=== PATIENT | female | born 1995 | race American Indian/Alaskan Native ===

== ENCOUNTER 2017-04-16 21:17 | Emergency (ER) | payer OTHER ==
[2017-04-16 22:04] VITALS: BMI 27.3
[2017-04-16 22:13] VITALS: TEMP 98.5
[2017-04-16] MEDS ORDERED: Sodium Chloride 0.9% 1,000 ML IV STA (22:24)
--- NOTE | 2017-04-16 22:50 | ED PDOC ---
Arrival/HPI - General Historian: Patient - History of Present Illness Time/Duration: > week (2 weeks, pain became worse one day ago) Symptom Course: Worsening <Tiffanie Garcia - Last Filed: 04/17/17 00:07> <Regina Shaw PA-C - Last Filed: 04/17/17 01:17> - General Chief Complaint: Abdominal Pain Time Seen by Provider: 04/16/17 22:06 - History of Present Illness Narrative History of Present Illness (Text): 04/16/17 21:45 Kanika Santiago is a 22 year old female, whose past medical history includes appendectomy and a feeding tube as an , who presents to the Emergency department complaining of epigastric pain for the past two weeks. Patient reports that one day ago the pain became constant and worse. Along with this she also had nausea, vomiting, and food intolerance. Patient notes taking Tylenol, but there is no significant relief and her last menstrual period was in the beginning of March. Patient denies chest pain, shortness of breath, headache, fever, chills, cough, diarrhea, dysuria, hematuria, frequency, flank pain, or other complaints. PMD: Dr. Lundberg (Tiffanie Garcia) Modifying Factors (Text): food intolerance to everything she eats (Tiffanie Garcia) Associated Symptoms (Text): nausea, vomiting, and food intolerance. No pain relief with Tylenol. (Tiffanie Garcia) Past Medical History - Provider Review Nursing Documentation Reviewed: Yes - Infectious Disease Hx of Infectious Diseases: None - Psychiatric Hx Substance Use: No - Anesthesia Hx Anesthesia: No <Tiffanie Garcia - Last Filed: 04/17/17 00:07> Family/Social History - Physician Review Nursing Documentation Reviewed: Yes Family/Social History: Unknown Family HX Smoking Status: Never Smoked Hx Alcohol Use: No Hx Substance Use: No <Tiffanie Garcia - Last Filed: 04/17/17 00:07> Allergies/Home Meds <Tiffanie Garcia - Last Filed: 04/17/17 00:07> <Regina Shaw PA-C - Last Filed: 04/17/17 01:17> Allergies/Adverse Reactions: Allergies No Known Allergies Allergy (Verified 04/16/17 22:04) Review of Systems - Review of Systems Constitutional: absent: Fevers Respiratory: absent: SOB Cardiovascular: absent: Chest Pain Gastrointestinal: Abdominal Pain (epigastric region), Nausea, Vomiting, Food Intolerance Genitourinary Female: absent: Dysuria, Frequency, Hematuria Musculoskeletal: absent: Back Pain Neurological: absent: Headache <Tiffanie Garcia - Last Filed: 04/17/17 00:07> Physical Exam Vital Signs Reviewed: Yes Temperature: Afebrile Blood Pressure: Normal Pulse: Regular Respiratory Rate: Normal Appearance: Positive for: Well-Appearing, Non-Toxic, Comfortable Pain Distress: None Mental Status: Positive for: Alert and Oriented X 3 - Systems Exam Head: Present: Atraumatic, Normocephalic Pupils: Present: PERRL Extroacular Muscles: Present: EOMI Conjunctiva: Present: Normal Mouth: Present: Moist Mucous Membranes Neck: Present: Normal Range of Motion Respiratory/Chest: Present: Clear to Auscultation, Good Air Exchange. No: Respiratory Distress, Accessory Muscle Use Cardiovascular: Present: Regular Rate and Rhythm, Normal S1, S2. No: Murmurs Abdomen: Present: Tenderness (mild epigastric tenderness), Normal Bowel Sounds, Scars (on LUQ and umbilical ). No: Distention, Peritoneal Signs Back: Present: Normal Inspection Upper Extremity: Present: Normal Inspection. No: Cyanosis, Edema Lower Extremity: Present: Normal Inspection. No: Edema Neurological: Present: GCS=15, CN II-XII Intact, Speech Normal Skin: Present: Warm, Dry, Normal Color. No: Rashes Psychiatric: Present: Alert, Oriented x 3, Normal Insight, Normal Concentration <Tiffanie Garcia - Last Filed: 04/17/17 00:07> Medical Decision Making - Lab Interpretations I have reviewed the lab results: Yes <Tiffanie Garcia - Last Filed: 04/17/17 00:07> - Scribe Statement The provider has reviewed the documentation as recorded by the Scribe <Tiffanie Garcia - Last Filed: 04/17/17 00:07> - PA / RENDERER / Resident Statement MD/DO has reviewed & agrees with the documentation as recorded. <Regina Shaw PA-C - Last Filed: 04/17/17 01:17> - Scribe Statement 04/16/2017 Sophie Ivy Provider Scribe Attestation: All medical record entries made by the Scribe were at my direction and personally dictated by me. I have reviewed the chart and agree that the record accurately reflects my personal performance of the history, physical exam, medical decision making, and the department course for this patient. I have also personally directed, reviewed, and agree with the discharge instructions and disposition. (Tiffanie Garcia) Disposition/Present on Arrival - Present on Arrival History of DVT/PE: No History of Uncontrolled Diabetes: No Urinary Catheter: No History of Decub. Ulcer: No History Surgical Site Infection Following: None <Tiffanie Garcia - Last Filed: 04/17/17 00:07> - Present on Arrival Any Indicators Present on Arrival: No History of DVT/PE: No History of Uncontrolled Diabetes: No Urinary Catheter: No History of Decub. Ulcer: No - Disposition Have Diagnosis and Disposition been Completed?: Yes Disposition Time: 00:45 Patient Plan: Discharge <Regina Shaw PA-C - Last Filed: 04/17/17 01:17> - Disposition Diagnosis: Abdominal pain, Disposition: HOME/ ROUTINE Condition: IMPROVED Discharge Instructions (ExitCare): Abdominal Pain (ED), First Trimester (ED) Print Language: CONGOLESE Additional Instructions: Thank you for letting us take care of you today. You were treated for abdominal pain, . The emergency medical care you received today was directed at your acute symptoms. If you were prescribed any medication, please fill it and take as directed. It may take several days for your symptoms to resolve. Return to the Emergency Department if your symptoms worsen, do not improve, or if you have any other problems. Please contact your OB doctor in 2 days for re-evaluation and follow up. Bring any paperwork you were given at discharge with you along with any medications you are taking to your follow up visit. Our treatment cannot replace ongoing medical care by a primary care provider (PCP) outside of the emergency department. Thank you for allowing the [facility] team to be part of your care today. Prescriptions: Multivit/Folic Acid/I [] 1 tab PO DAILY #30 tab Referrals: Dean Lundberg MD [Primary Care Provider] - Follow up with primary Forms: [employer] (Hungarian), WORK NOTE
[2017-04-16 22:55] LABS: BASO # 0.02 K/mm3 (0.0-2.0); BASO % 0.3 % (0.0-3.0); EOS # 0.1 (0.0-0.7); EOS % 0.9 % (1.5-5.0); GRAN # 4.11 (1.4-6.5); GRAN % 62.7 % (50.0-68.0); HEMATOCRIT 33.9 % (36.0-48.0); MEAN CELL VOLUME 75.7 fl (80.0-105.0); MONO # 0.4 (0.1-0.6); MONO % 6.1 % (1.0-6.0); RED CELL DISTRIBUTION WIDTH 14.5 % (11.5-14.5); WHITE BLOOD COUNT 6.6 10^3/ul (4.5-11.0)
[2017-04-16 23:06] LABS: ALB/GLOB RATIO 1.3 (1.1-1.8); ALKALINE PHOSPHATASE 41 U/L (38-133); ALT/SGPT 26 U/L (7-56); AST/SGOT 32 U/L (15-39); BILIRUBIN,TOTAL 0.4 mg/dL (0.2-1.3); BLOOD UREA NITROGEN 9 mg/dL (7-21); CALCIUM 9.2 mg/dL (8.4-10.5); CARBON DIOXIDE 23 mmol/L (21-33); CHLORIDE 103 mmol/L (98-107); GFR AFRICAN-AMERICAN > 60; GLUCOSE,RANDOM 88 mg/dL (70-110); LIPASE 82 U/L (23-300); POTASSIUM 4.1 mmol/L (3.6-5.0); SODIUM 137 mmol/L (132-148); TOTAL PROTEIN 7.6 g/dL (5.8-8.3)
[2017-04-16 23:24] LABS: PH,URINE 6.5 (4.7-8.0); URINE BILIRUBIN NEGATIVE (NEGATIVE); URINE BLOOD NEGATIVE (NEGATIVE); URINE GLUCOSE (UA) NEGATIVE (NEGATIVE); URINE KETONE NEGATIVE (NEGATIVE); URINE LEUKOCYTE ESTERASE NEGATIVE Leu/uL (NEGATIVE); URINE PROTEIN NEGATIVE mg/dL (<30 mg/dL)
[2017-04-16 23:26] LABS: URINE APPEARANCE CLEAR (CLEAR); URINE COLOR YELLOW (YELLOW)
--- NOTE | 2017-04-17 00:07 | US ---
EXAM: US Abdomen Complete CLINICAL HISTORY: 22 years old, female; Pain; Abdominal pain; Generalized; ; Additional info: Epigastric pain TECHNIQUE: Real-time ultrasound of the abdomen (complete) with image documentation. COMPARISON: No relevant prior studies available. FINDINGS: Liver: No acute findings. No intrahepatic bile duct dilation. Gallbladder: No acute findings. No gallstones. Common bile duct: No stones. No dilation, measuring 3.4 mm. Pancreas: Visualization of the pancreas is limited by overlying bowel gas. Right kidney: No acute findings. No hydronephrosis. An anechoic rounded focus is identified within the right kidney measuring 18 mm in greatest dimension. The right kidney is significantly smaller than the left. The right kidney measures 8.1 x 4.0 x 5.3 cm. Left Kidney: Unremarkable echogenicity and size measuring 10.6 x 6.2 x 5.9 cm. No hydronephrosis. Spleen: Unremarkable in echogenicity and size, measuring 8.7 x 3.5 x 5.1 cm. Aorta: Unremarkable. Inferior vena cava: patent. IMPRESSION: Limited evaluation of the pancreas, secondary to overlying bowel gas. Asymmetric enlargement of the left kidney. Simple cyst within the right kidney. Otherwise, unremarkable sonographic evaluation of the abdomen, as detailed above.
--- NOTE | 2017-04-17 00:11 | US ---
EXAM: US , Transvaginal CLINICAL HISTORY: 22 years old, female; Pain; Other: Abd pain; Gestational age or lmp: 03/30/17; ; Additional info: Abd pain, , R/O ectopic TECHNIQUE: Real-time transvaginal obstetrical ultrasound of the maternal pelvis and a first trimester with image documentation. Transvaginal imaging was used for better evaluation of the fetus and adnexa. COMPARISON: No relevant prior studies available. FINDINGS: Gestation: A single intrauterine gestation is identified with a crown-rump length measuring 8.6 mm, corresponding to an approximate gestational age of 6 weeks and 6 days. cardiac activity is identified at 153 beats per minute. Placenta/amniotic fluid: Cannot be adequately evaluated due to the early gestational age. Uterus/cervix: As above. Ovaries: Unremarkable in echogenicity and size. The right ovary measures 3.4 x 1.3 x 2.8 cm. Left ovary measures 3.8 x 1 point by 2.3 cm. Dopplerable flow is detected bilaterally. No mass. Free fluid: No free fluid. IMPRESSION: Single intrauterine gestation with an approximate gestational age of 6 weeks and 6 days. cardiac activity is identified. No ectopic is detected. Please correlate these findings with the serum beta-hCG with short term followup
[2017-04-17 00:34] VITALS: RESP 16
[2017-04-17 01:55] VITALS: BP 118/62; PULSE 66; O2SAT 100
== END 2017-04-17 01:50 | disposition home or self-care (01) ==
LOC: ED 21:17 → MERGE 21:17 → ED 04-17 01:50
DX: O26.891 Other specified pregnancy related conditions, first trimester (principal); Z3A.01 Less than 8 weeks gestation of pregnancy; R10.13 Epigastric pain
CPT/HCPCS: 76700; 76817; 80053; 81003; 83690; 84702; 85025; 87086; 96374; 96375; 99284; J2765; J7040

== ENCOUNTER 2017-07-26 15:26 | Emergency (ER) | payer OTHER ==
[2017-07-26 15:26] VITALS: BMI 27.3
[2017-07-26 15:46] VITALS: TEMP 98.7
[2017-07-26] MEDS ORDERED: Sodium Chloride 0.9% 1,000 ML IV STA (16:54)
[2017-07-26] MEDS ORDERED: DiphenhydrAMINE 50 mg/ml Inj IVP STA (16:57)
--- NOTE | 2017-07-26 17:03 | ED PDOC ---
Arrival/HPI - General Chief Complaint: Flu-like Symptoms Time Seen by Provider: 07/26/17 16:54 Historian: Patient - History of Present Illness Narrative History of Present Illness (Text): 07/26/17 17:00 A 22 year old female presents to the emergency department complaining of a mildly constant right sided headache for 2 weeks. Patient describes it as a throbbing sensation with mild associated photophobia. She also notes myalgia and chills for the past 2 days. Patient denies any fever, nausea, vomiting, abdominal pain, chest pain, shortness of breath, dizziness, focal neurological deficits, nuchal rigidity or any other complaints. Time/Duration: Other (2 weeks) Symptom Course: Unchanged Quality: Throbbing Context: Home Past Medical History - Provider Review Nursing Documentation Reviewed: Yes - Infectious Disease Hx of Infectious Diseases: None - Cardiac Hx Cardiac Disorders: No - Pulmonary Hx Respiratory Disorders: Yes Hx Asthma: Yes - Neurological Hx Neurological Disorder: No - HEENT Hx HEENT Disorder: No - Renal Hx Renal Disorder: No - Endocrine/Metabolic Hx Endocrine Disorders: No - Hematological/Oncological Hx Blood Disorders: No - Integumentary Hx Dermatological Disorder: No - Musculoskeletal/Rheumatological Hx Musculoskeletal Disorders: No - Gastrointestinal Hx Gastrointestinal Disorders: No - Genitourinary/Gynecological Hx Genitourinary Disorders: No - Psychiatric Hx Psychophysiologic Disorder: No Hx Substance Use: No - Surgical History Hx Appendectomy: Yes - Anesthesia Hx Anesthesia: No Family/Social History - Physician Review Nursing Documentation Reviewed: Yes Family/Social History: No Known Family HX Smoking Status: Never Smoked Hx Alcohol Use: No Hx Substance Use: No Allergies/Home Meds Allergies/Adverse Reactions: Allergies chocolate flavor Allergy (Verified 07/26/17 15:46) ANAPHYLAXIS Review of Systems - Physician Review All systems were reviewed & negative as marked: Yes - Review of Systems Constitutional: Night Sweats. absent: Fevers Eyes: Photophobia Respiratory: absent: SOB Cardiovascular: absent: Chest Pain Gastrointestinal: absent: Abdominal Pain, Nausea, Vomiting Musculoskeletal: Myalgias Neurological: Headache. absent: Dizziness, Focal Weakness Physical Exam Vital Signs Reviewed: Yes Vital Signs Temp Pulse Resp BP Pulse Ox 07/26/17 18:00 74 18 115/68 98 07/26/17 16:46 79 18 113/65 98 07/26/17 15:40 98.7 F 85 18 111/66 93 L Temperature: Afebrile Blood Pressure: Normal Pulse: Regular Respiratory Rate: Normal Appearance: Positive for: Well-Appearing, Non-Toxic, Comfortable Pain Distress: None Mental Status: Positive for: Alert and Oriented X 3 - Systems Exam Head: Present: Atraumatic, Normocephalic Pupils: Present: PERRL Extroacular Muscles: Present: EOMI Conjunctiva: Present: Normal Mouth: Present: Moist Mucous Membranes Neck: Present: Normal Range of Motion Respiratory/Chest: Present: Clear to Auscultation, Good Air Exchange. No: Respiratory Distress, Accessory Muscle Use Cardiovascular: Present: Regular Rate and Rhythm, Normal S1, S2. No: Murmurs Abdomen: Present: Normal Bowel Sounds. No: Tenderness, Distention, Peritoneal Signs Back: Present: Normal Inspection Upper Extremity: Present: Normal Inspection. No: Cyanosis, Edema Lower Extremity: Present: Normal Inspection. No: Edema Neurological: Present: GCS=15, CN II-XII Intact, Speech Normal Skin: Present: Warm, Dry, Normal Color. No: Rashes Psychiatric: Present: Alert, Oriented x 3, Normal Insight, Normal Concentration Medical Decision Making ED Course and Treatment: 07/26/17 17:00 Impression: A 22 year old female with right sided headache. Patient notes photophobia, myalgia and chills. Plan: -- Benadryl, Pepcid, Toradol, Reglan and IV fluids -- Reassess and disposition Progress Notes: - Lab Interpretations Lab Results: Lab Results 07/26/17 16:43: Urine Color Yellow, Urine Appearance Clear, Urine pH 6.0, Ur Specific [place] >= 1.030, Urine Protein Trace H, Urine Glucose (UA) Negative, Urine Ketones Negative, Urine Blood Negative, Urine Nitrate Negative, Urine Bilirubin Negative, Urine Urobilinogen 1.0 H, Ur Leukocyte Esterase Negative, Urine RBC 1 - 3, Urine WBC 1 - 3, Ur Epithelial Cells 10 - 12, Urine Bacteria Few - Medication Orders Current Medication Orders: Discontinued Medications Diphenhydramine HCl (Benadryl) 25 mg IVP STAT STA Stop: 07/26/17 16:58 Last Admin: 07/26/17 17:21 Dose: 25 mg IVP Administration Document 07/26/17 17:21 SF (Rec: 07/26/17 17:21 [place] [facility] [email or web address] Charges for Administration # of IVP Administrations 1 Famotidine (Pepcid) 20 mg PO STAT STA Stop: 07/26/17 16:58 Last Admin: 07/26/17 17:23 Dose: 20 mg Sodium Chloride (Sodium Chloride 0.9%) 1,000 mls @ 999 mls/hr IV .Q1H1M STA Stop: 07/26/17 17:54 Last Admin: 07/26/17 17:21 Dose: 999 mls/hr eMAR Start Stop Document 07/26/17 17:21 SF (Rec: 07/26/17 17:21 [email or web address] Intravenous Solution Start Date 07/26/17 Start Time 17:21 End Date 07/26/17 End time 18:22 Total Infusion Time 61 Ketorolac Tromethamine (Toradol) 30 mg IVP STAT STA Stop: 07/26/17 16:57 Last Admin: 07/26/17 17:21 Dose: 30 mg MAR Pain Assessment Document 07/26/17 17:21 SF (Rec: 07/26/17 17:22 [email or web address] Pain Reassessment Is this a pain reassessment? Yes Sleep Is patient sleeping during reassessment? No Presence of Pain Presence of Pain Yes Location Pain Location Body Site Abdomen IVP Administration Document 07/26/17 17:21 SF (Rec: 07/26/17 17:22 [facility] [place] [email or web address] Charges for Administration # of IVP Administrations 1 Metoclopramide HCl (Reglan) 10 mg IVP STAT STA Stop: 07/26/17 16:55 Last Admin: 07/26/17 17:23 Dose: Metoclopramide HCl (Reglan) 20 mg IVP STAT STA Stop: 07/26/17 16:55 Last Admin: 07/26/17 17:22 Dose: 20 mg IVP Administration Document 07/26/17 17:22 SF (Rec: 07/26/17 17:22 [email or web address] Charges for Administration # of IVP Administrations 1 - Scribe Statement The provider has reviewed the documentation as recorded by the Scribmaricel Kilpatrick Provider Scribe Attestation: All medical record entries made by the Scribe were at my direction and personally dictated by me. I have reviewed the chart and agree that the record accurately reflects my personal performance of the history, physical exam, medical decision making, and the department course for this patient. I have also personally directed, reviewed, and agree with the discharge instructions and disposition. Disposition/Present on Arrival - Present on Arrival Any Indicators Present on Arrival: No History of DVT/PE: No History of Uncontrolled Diabetes: No Urinary Catheter: No History of Decub. Ulcer: No History Surgical Site Infection Following: None - Disposition Have Diagnosis and Disposition been Completed?: Yes Diagnosis: Headache, Malaise Disposition: HOME/ ROUTINE Disposition Time: 19:40 Patient Plan: Discharge Condition: FAIR Discharge Instructions (ExitCare): Migraine Headache (ED), Viral Syndrome (ED) Print Language: KHMER Additional Instructions: Drink lots of water , avoid dairy and dairy products. Take the headache medicine as needed. Prescriptions: Acetaminophen/Butalbital/Caf [Fioricet] 1 tab PO Q8 PRN #10 tab PRN Reason: Headache Famotidine 20 mg PO BID PRN #20 tablet PRN Reason: Dyspepsia Referrals: Dean Lundberg MD [Primary Care Provider] - Follow up with primary Forms: [email or web address] (Anguillan)
[2017-07-26 18:13] LABS: URINE BILIRUBIN NEGATIVE (NEGATIVE); URINE BLOOD NEGATIVE (NEGATIVE); URINE GLUCOSE (UA) NEGATIVE (NEGATIVE); URINE KETONE NEGATIVE (NEGATIVE); URINE LEUKOCYTE ESTERASE NEGATIVE Leu/uL (NEGATIVE); URINE PROTEIN TRACE mg/dL (<30 mg/dL)
[2017-07-26 18:23] LABS: URINE APPEARANCE CLEAR (CLEAR); URINE COLOR YELLOW (YELLOW)
[2017-07-26 19:34] LABS: URINE BACTERIA FEW (NEG)
[2017-07-26 19:58] VITALS: BP 118/70; PULSE 65; RESP 16; O2SAT 100
== END 2017-07-26 19:58 | disposition home or self-care (01) ==
LOC: ED 15:26
DX: R51 Headache (principal); R53.81 Other malaise
CPT/HCPCS: 81001; 96361; 96374; 96375; 99285; J1200; J1885; J2765; J7040

== ENCOUNTER 2017-08-14 08:19 | Emergency (ER) | payer OTHER ==
[2017-08-14 08:20] VITALS: BMI 27.3
[2017-08-14 08:49] VITALS: TEMP 99; O2SAT 100
--- NOTE | 2017-08-14 08:59 | ED PDOC ---
Arrival/HPI - General Chief Complaint: Lower Extremity Problem/Injury Time Seen by Provider: 08/14/17 08:22 Historian: Patient - History of Present Illness Narrative History of Present Illness (Text): 08/14/17 08:59 A 22 year old female whose past medical history includes a left broken foot (5 years), presents to the emergency department for left foot pain, which began 6 days ago. The patient states she was at work and her foot got "stuck between a gap in a truck." The patient reports she was sent home immediately after incident. She thought the pain would have gotten better on its own so she didn' t go her doctors or emergency department that day. Now the patient is still having pain. She denies any swelling, abdominal pain, headaches, or any other complaints at this time. Time/Duration: < week (x 6 days ) Symptom Onset: Sudden Symptom Course: Unchanged Severity Level: Mild Activities at Onset: Light Context: Work Past Medical History - Provider Review Nursing Documentation Reviewed: Yes - Infectious Disease Hx of Infectious Diseases: None - Cardiac Hx Cardiac Disorders: No - Pulmonary Hx Respiratory Disorders: Yes Hx Asthma: Yes - Neurological Hx Neurological Disorder: No - HEENT Hx HEENT Disorder: No - Renal Hx Renal Disorder: No - Endocrine/Metabolic Hx Endocrine Disorders: No - Hematological/Oncological Hx Blood Disorders: No - Integumentary Hx Dermatological Disorder: No - Musculoskeletal/Rheumatological Hx Musculoskeletal Disorders: No - Gastrointestinal Hx Gastrointestinal Disorders: No - Genitourinary/Gynecological Hx Genitourinary Disorders: No - Psychiatric Hx Psychophysiologic Disorder: No Hx Substance Use: No - Surgical History Hx Appendectomy: Yes Other/Comment: removal of feeding - Anesthesia Hx Anesthesia: No Family/Social History - Physician Review Nursing Documentation Reviewed: Yes Family/Social History: No Known Family HX Smoking Status: Never Smoked Hx Alcohol Use: No Hx Substance Use: No Allergies/Home Meds Allergies/Adverse Reactions: Allergies chocolate flavor Allergy (Verified 08/14/17 08:47) ANAPHYLAXIS Home Medications: Home Meds Medication Instructions Recorded Confirmed No Known Home Med 08/14/17 08/14/17 Review of Systems - Physician Review All systems were reviewed & negative as marked: Yes - Review of Systems Constitutional: absent: Fevers Gastrointestinal: absent: Abdominal Pain Musculoskeletal: Other (left foot pain ). absent: Back Pain, Neck Pain Skin: absent: Rash Neurological: absent: Headache Physical Exam - Physical Exam Narrative Physical Exam (Text): 08/14/17 09:01 Head: Atraumatic. Normocephalic. Neck: Supple. Full ROM. Cardiovascular: Regular rate. Regular rhythm. Distal pulses are 2+ and symmetric. Pulmonary/Chest: No evidence of respiratory distress. Extremities: No edema. No cyanosis. No clubbing. Full range of motion in all extremities. No calf tenderness. There is pain to anterior aspect ankle and lateral malleolus. No achilles pain, no knee pain, no hip pain. Skin: Skin is warm and dry. No petechiae. No purpura. No laceration or ecchymosis. Neurological: Alert, awake. Motor and sensory exam intact. Reflexes intact. Psychiatric: Good eye contact. Normal interaction, affect, and behavior. Vital Signs Reviewed: Yes Vital Signs Temp Pulse Resp BP Pulse Ox 08/14/17 09:35 68 16 126/78 100 08/14/17 08:44 99.0 F 70 18 100 Temperature: Afebrile Pulse: Regular Respiratory Rate: Normal Appearance: Positive for: Well-Appearing, Non-Toxic, Comfortable Pain Distress: Mild Mental Status: Positive for: Alert and Oriented X 3 Medical Decision Making ED Course and Treatment: 08/14/17 09:01 Impression: A 22 year old female with left foot pain Differential Diagnosis included but are not limited to: ankle sprain vs. fracture Plan: -- Radiology- left ankle -- Reassess and disposition Progress Notes: Patient is nv intact. No knee or hip pain. Xrays unremarkable. Stressed need for ortho f/u. Air cast applied. Advised ortho clearance before return to work. - RAD Interpretation Radiology Orders: 08/14/17 08:56 ANKLE LEFT 3 VIEWS ROUTINE [RAD] Stat - Scribe Statement The provider has reviewed the documentation as recorded by the Scribmaricel Lamas Provider Scribe Attestation: All medical record entries made by the Scribe were at my direction and personally dictated by me. I have reviewed the chart and agree that the record accurately reflects my personal performance of the history, physical exam, medical decision making, and the department course for this patient. I have also personally directed, reviewed, and agree with the discharge instructions and disposition. Disposition/Present on Arrival - Present on Arrival Any Indicators Present on Arrival: No History of DVT/PE: No History of Uncontrolled Diabetes: No Urinary Catheter: No History of Decub. Ulcer: No History Surgical Site Infection Following: None - Disposition Have Diagnosis and Disposition been Completed?: Yes Diagnosis: Ankle sprain Disposition: HOME/ ROUTINE Disposition Time: 09:35 Patient Plan: Discharge Condition: GOOD Discharge Instructions (ExitCare): Ankle Sprain (ED) Additional Instructions: Rest. No strenuous activity until pain resolved or cleared by an orthopedic physician. Use crutches as directed. Take ibuprofen as needed for pain. Follow-up with an orthopedic physician. Referrals: Darek Newman MD [Staff Provider] - Follow up with primary Dean Lundberg MD [Primary Care Provider] - Follow up with primary Forms: [facility] [employer] (Maori), WORK NOTE
[2017-08-14 10:05] VITALS: BP 126/78; PULSE 68; RESP 16
--- NOTE | 2017-08-14 10:21 | RAD ---
PROCEDURE: Left Ankle Radiographs. HISTORY: left ankle injury, hx of fracture prior COMPARISON: None FINDINGS: BONES: Normal. No fracture. JOINTS: Normal. No osteoarthritis. Ankle mortise maintained. Talar dome intact SOFT TISSUES: Normal. OTHER FINDINGS: None. IMPRESSION: Normal left ankle radiographs.
== END 2017-08-14 09:57 | disposition home or self-care (01) ==
LOC: ED 08:19
DX: S93.402A Sprain of unspecified ligament of left ankle, initial encounter (principal); W23.0XXA Caught, crushed, jammed, or pinched between moving objects, initial encounter; Y92.89 Other specified places as the place of occurrence of the external cause; Y99.0 Civilian activity done for income or pay

== ENCOUNTER 2017-09-12 08:59 | Emergency (ER) | payer OTHER ==
[2017-09-12 09:26] VITALS: BMI 26.5
[2017-09-12] MEDS ORDERED: Sodium Chloride 0.9% 1,000 ML IV STA (09:39)
--- NOTE | 2017-09-12 09:47 | ED PDOC ---
Arrival/HPI - General Chief Complaint: Abdominal Pain Time Seen by Provider: 09/12/17 09:10 Historian: Patient - History of Present Illness Narrative History of Present Illness (Text): 09/12/17 09:55 22 Year-old female presents today with a 2 day history of abdominal pain with vaginal spotting. Patient states her last menstrual period was mid July. Patient complaining of nausea and low back pain. Denies diarrhea. Denies vomiting. Denies dizziness or weakness. Patient denies chest pain or shortness of breath. Denies urinary symptoms. Patient describes the pain as a achy crampy lower abdominal pain. Time/Duration: Other (2 days) Symptom Onset: Gradual Quality: Aching, Cramping Severity Level: 5, Mild Past Medical History - Provider Review Nursing Documentation Reviewed: Yes - Travel History Have you recently traveled outside [place] w/in the past 3 mons?: No - Infectious Disease Hx of Infectious Diseases: None - Cardiac Hx Cardiac Disorders: No - Pulmonary Hx Respiratory Disorders: Yes Hx Asthma: Yes - Neurological Hx Neurological Disorder: No - HEENT Hx HEENT Disorder: No - Renal Hx Renal Disorder: No - Endocrine/Metabolic Hx Endocrine Disorders: No - Hematological/Oncological Hx Blood Disorders: No - Integumentary Hx Dermatological Disorder: No - Musculoskeletal/Rheumatological Hx Musculoskeletal Disorders: No - Gastrointestinal Hx Gastrointestinal Disorders: No - Genitourinary/Gynecological Hx Genitourinary Disorders: No - Psychiatric Hx Psychophysiologic Disorder: No Hx Substance Use: No - Surgical History Hx Appendectomy: Yes Other/Comment: removal of feeding - Anesthesia Hx Anesthesia: Yes Hx Anesthesia Reactions: No Hx Malignant Hyperthermia: No Family/Social History - Physician Review Nursing Documentation Reviewed: Yes Family/Social History: Unknown Family HX Smoking Status: Never Smoked Hx Alcohol Use: No Hx Substance Use: No Allergies/Home Meds Allergies/Adverse Reactions: Allergies chocolate flavor Allergy (Verified 09/12/17 09:28) ANAPHYLAXIS Review of Systems - Review of Systems Constitutional: absent: Fatigue, Fevers Respiratory: absent: SOB, Cough Cardiovascular: absent: Chest Pain, Palpitations Gastrointestinal: Abdominal Pain, Nausea. absent: Constipation, Diarrhea, Vomiting Genitourinary Female: Vaginal Bleeding. absent: Dysuria, Frequency, Hematuria, Vaginal Discharge Musculoskeletal: Back Pain. absent: Arthralgias, Neck Pain Skin: absent: Rash, Pruritis Neurological: absent: Headache, Dizziness Psychiatric: absent: Anxiety, Depression Physical Exam Vital Signs Reviewed: Yes Vital Signs Temp Pulse Resp BP Pulse Ox 09/12/17 11:53 83 18 108/67 100 09/12/17 09:55 98.7 F 84 18 121/73 100 Temperature: Afebrile Blood Pressure: Normal Pulse: Regular Respiratory Rate: Normal Appearance: Positive for: Well-Appearing, Non-Toxic, Comfortable Pain Distress: None Mental Status: Positive for: Alert and Oriented X 3 - Systems Exam Head: Present: Atraumatic Mouth: Present: Moist Mucous Membranes Neck: Present: Normal Range of Motion Respiratory/Chest: Present: Clear to Auscultation, Good Air Exchange. No: Respiratory Distress, Accessory Muscle Use Cardiovascular: Present: Regular Rate and Rhythm, Normal S1, S2. No: Murmurs Abdomen: Present: Tenderness (+ minimal lower abdominal tenderness ), Normal Bowel Sounds. No: Distention, Peritoneal Signs, Rebound, Guarding Genitourinary/Pelvic Exam: Present: Normal External Genitalia, Cervical os Closed, Other (chaparoned by mu SCOTT. ). No: Vaginal Discharge, Vaginal Bleeding, Vaginal Lesions, Adenexal Tenderness, Adenexal Mass, Cervical Motion Tendernes, Odor Back: Present: Normal Inspection. No: Midline Tenderness, Paraspinal Tenderness Upper Extremity: Present: Normal Inspection Lower Extremity: Present: Normal Inspection. No: Edema Medical Decision Making ED Course and Treatment: 09/12/17 10:01 Patient is nontoxic well appearing in no distress. vital signs are stable. CBC: wnl CMP: wnl Beta hC.06 TYPE AND SCREEN: A+ Urinalysis: negative Ultrasound:ADDENDUM: The impression as stated is incorrect. IMPRESSION: No significant or acute findings to account for/ related to the clinical presentation. NO EVIDENCE OF INTRAUTERINE OR VISIBLE ECTOPIC GESTATION. [ Addendum Report Added by Nacho Sierra MD at 09/12/2017 12:29:41 ] HISTORY: Pain. Menstrual status: LMP currently menstruating/cycles are irregular COMPARISON: 04/16/2017 TECHNIQUE: Transvaginal only. Real -time technique with 2D, duplex and color Doppler FINDINGS: UTERUS: Measures 5 x 7 x 9.2 cm. Normal in size and appearance. No fibroid or other mass lesion seen. ENDOMETRIUM: Measures 10.0 mm in diameter. No ultrasound findings to suggest gestational sac , fluid, debris, mass or polyp or other pathologic process within the endometrium. CERVIX: No cervical abnormality identified. RIGHT OVARY: Measures 2 x 3.6 x 5.1 cm. No solid mass. Normal flow. LEFT OVARY: Measures 2.1 x 3.3 x 4.2 cm. No solid mass. Normal flow. FREE FLUID: No significant free fluid noted. OTHER FINDINGS: None. IMPRESSION: Transvaginal only. Real -time technique with 2D, duplex and color Doppler pt was advised to return in 2 for repeat beta hcg; Discussed all the results the patient. stressed the importance of immediate f/u with [facility]. advised vitamins daily. discussed signs and symptoms of ectopic and need for immediate return. advised f/u with the blunger loader within the next 2 days. advised immediate return if symptoms worsen,persist or if new symptoms develop. Patient verbalizes understanding of discharge instructions and need for immediate followup. all aspects of this case were discussed the attending of record. Impression: + test, abdominal pain, Tylenol every 4 hours as needed for pain Increase fluids Followup with the cutter tender within the next 2 days Return immediately if symptoms worsen persist or if new symptoms develop: High fevers, heavy bleeding, severe abdominal pain, vomiting, diarrhea, dizziness or weakness or any other concerning symptoms develop. Repeat beta hCG in 48 hours Reassessment Condition: Re-examined, Improved (abdomen is soft, non tender, non distended. no rebound or guarding) - Lab Interpretations Lab Results: 09/12/17 09:56 09/12/17 09:56 Lab Results 09/12/17 10:10: Urine Color Yellow, Urine Appearance Sl cloudy, Urine pH 6.0, Ur Specific [place] >= 1.030, Urine Protein 30 H, Urine Glucose (UA) Negative, Urine Ketones Negative, Urine Blood Negative, Urine Nitrate Negative, Urine Bilirubin Negative, Urine Urobilinogen 0.2, Ur Leukocyte Esterase Negative, Urine RBC Negative, Urine WBC 0 - 2, Ur Epithelial Cells 10 - 12, Urine Bacteria Trace, Urine Other Mucus 09/12/17 09:56: WBC 3.7 L D, RBC 4.61, Hgb 11.4 L, Hct 35.3 L, MCV 76.6 L, MCH 24.7 L, MCHC 32.3, RDW 14.4, Plt Count 209, MPV 8.8, Gran % 78.0 H, Lymph % ( Auto) 15.5 L, [place] % (Auto) 5.9, Eos % (Auto) 0.3 L, Baso % (Auto) 0.3, Gran # 2.91, Lymph # 0.6 L, [place] # 0.2, Eos # 0.0, Baso # 0.01 09/12/17 09:56: Blood Type A POSITIVE, Antibody Screen Negative, BBK History Checked No verified bt 09/12/17 09:56: Beta HCG, Quant 229.06 H 09/12/17 09:56: Sodium 137, Potassium 3.6, Chloride 103, Carbon Dioxide 25, Anion Gap 13, BUN 10, Creatinine 0.7, Est GFR ( Amer) > 60, Est GFR (Non- Af Amer) > 60, Random Glucose 95, Calcium 8.7, Total Bilirubin 0.4, AST 27, ALT 20, Alkaline Phosphatase 37 L, Total Protein 7.8, Albumin 4.3, Globulin 3.5, Albumin/Globulin Ratio 1.2 - RAD Interpretation Radiology Orders: 09/12/17 09:39 TRANSVAGINAL [US] Stat - Medication Orders Current Medication Orders: Discontinued Medications Acetaminophen (Tylenol 325mg Tab) 975 mg PO STAT STA Stop: 09/12/17 09:40 Last Admin: 09/12/17 10:03 Dose: 975 mg MAR Pain/Vitals Document 09/12/17 10:03 MR (Rec: 09/12/17 10:03 [id number]) Pain Reassessment Is This A Pain ReAssessment? No Sleep Is patient sleeping during reassessment? No Presence of Pain Presence of Pain Yes Pain Scale Used Pain Scale Used Numeric Location Left, Right or Bilateral Bilateral Upper or Lower Lower Pain Location Body Site Back Description Constant Intensity 10 Scale Used Numeric Alleviating Factors Medication Sodium Chloride (Sodium Chloride 0.9%) 1,000 mls @ 999 mls/hr IV .Q1H1M STA Stop: 09/12/17 10:39 Last Admin: 09/12/17 10:03 Dose: 999 mls/hr eMAR Start Stop Document 09/12/17 10:03 MR (Rec: 09/12/17 10:04 [id number]) Intravenous Solution Start Date 09/12/17 Start Time 10:03 End Date 09/12/17 End time 11:04 Total Infusion Time 61 Disposition/Present on Arrival - Present on Arrival Any Indicators Present on Arrival: No History of DVT/PE: No History of Uncontrolled Diabetes: No Urinary Catheter: No History of Decub. Ulcer: No History Surgical Site Infection Following: None - Disposition Have Diagnosis and Disposition been Completed?: Yes Diagnosis: test positive, Abdominal pain Disposition: HOME/ ROUTINE Disposition Time: 12:37 Patient Plan: Discharge Patient Problems: Current Active Problems Problem Status Onset Abdominal pain Acute test positive Acute Condition: GOOD Discharge Instructions (ExitCare): Acute Abdominal Pain (ED) Additional Instructions: Tylenol every 4 hours as needed for pain Increase fluids Followup with the cutter tender within the next 2 days Return immediately if symptoms worsen persist or if new symptoms develop: High fevers, heavy bleeding, severe abdominal pain, vomiting, diarrhea, dizziness or weakness or any other concerning symptoms develop. Return to ER to Repeat beta hCG in 48 hours Prescriptions: Multivit/Folic Acid/I [ Plus] 1 tab PO DAILY #30 tab Referrals: Staci Bradley MD [Staff Provider] - [facility] - Follow up with primary Forms: [employer] ([place]anese), WORK NOTE
[2017-09-12 09:55] VITALS: RESP 18; TEMP 98.7; O2SAT 100
[2017-09-12 10:07] LABS: BASO # 0.01 K/mm3 (0.0-2.0); BASO % 0.3 % (0.0-3.0); EOS % 0.3 % (1.5-5.0); GRAN # 2.91 (1.4-6.5); HEMOGLOBIN 11.4 g/dL (12.0-16.0); LYMPH # 0.6 (1.2-3.4); LYMPH % 15.5 % (22.0-35.0); MEAN CELL VOLUME 76.6 fl (80.0-105.0); MEAN CORPUSCULAR HEMOGLOBIN 24.7 pg (25.0-35.0); MEAN CORPUSCULAR HGB CONC 32.3 g/dl (31.0-37.0); MEAN PLATELET VOLUME 8.8 fl (7.0-11.0); MONO # 0.2 (0.1-0.6); MONO % 5.9 % (1.0-6.0); RBC 4.61 10^6/uL (3.5-6.1); RED CELL DISTRIBUTION WIDTH 14.4 % (11.5-14.5); WHITE BLOOD COUNT 3.7 10^3/ul (4.5-11.0)
[2017-09-12 10:17] LABS: ALB/GLOB RATIO 1.2 (1.1-1.8); ALBUMIN 4.3 g/dL (3.0-4.8); ALT/SGPT 20 U/L (7-56); AST/SGOT 27 U/L (14-36); BLOOD UREA NITROGEN 10 mg/dL (7-21); CALCIUM 8.7 mg/dL (8.4-10.5); GFR AFRICAN-AMERICAN > 60; GFR NON-AFRICAN AMERICAN > 60
[2017-09-12 10:28] LABS: URINE BILIRUBIN NEGATIVE (NEGATIVE); URINE BLOOD NEGATIVE (NEGATIVE); URINE GLUCOSE (UA) NEGATIVE (NEGATIVE); URINE LEUKOCYTE ESTERASE NEGATIVE Leu/uL (NEGATIVE); URINE NITRATE NEGATIVE (NEGATIVE); URINE PROTEIN 30 mg/dL (<30 mg/dL); URINE UROBILINOGEN 0.2 E.U./dL (<1 E.U./dL)
[2017-09-12 10:31] LABS: URINE APPEARANCE SL CLOUDY (CLEAR); URINE COLOR YELLOW (YELLOW)
[2017-09-12 10:33] LABS: URINE BACTERIA TRACE (NEG); URINE RBC NEGATIVE /hpf (0-2); URINE WBC 0 - 2 /hpf (0-6)
--- NOTE | 2017-09-12 12:18 | US ---
HISTORY: Pain. Menstrual status: LMP currently menstruating/cycles are irregular COMPARISON: 04/16/2017 TECHNIQUE: Transvaginal only. Real -time technique with 2D, duplex and color Doppler FINDINGS: UTERUS: Measures 5 x 7 x 9.2 cm. Normal in size and appearance. No fibroid or other mass lesion seen. ENDOMETRIUM: Measures 10.0 mm in diameter. No ultrasound findings to suggest gestational sac, fluid, debris, mass or polyp or other pathologic process within the endometrium. CERVIX: No cervical abnormality identified. RIGHT OVARY: Measures 2 x 3.6 x 5.1 cm. No solid mass. Normal flow. LEFT OVARY: Measures 2.1 x 3.3 x 4.2 cm. No solid mass. Normal flow. FREE FLUID: No significant free fluid noted. OTHER FINDINGS: None. IMPRESSION: Transvaginal only. Real -time technique with 2D, duplex and color Doppler
[2017-09-12 13:14] VITALS: BP 103/61; PULSE 81
[2017-09-12] MEDS ORDERED: Midazolam 2 MG/2 ML VIAL ONE (15:45)
== END 2017-09-12 13:14 | disposition home or self-care (01) ==
LOC: ED 08:59
DX: R10.9 Unspecified abdominal pain (principal); Z32.01 Encounter for pregnancy test, result positive
CPT/HCPCS: 76830; 80053; 81001; 84702; 85025; 86850; 86900; 87086; 96360; 99284; J7040

== ENCOUNTER 2017-09-21 18:10 | Emergency (ER) | payer OTHER ==
[2017-09-21 18:12] VITALS: BMI 24.7
--- NOTE | 2017-09-21 18:49 | ED PDOC ---
Arrival/HPI - General Chief Complaint: Abdominal Pain Time Seen by Provider: 09/21/17 18:31 Historian: Patient - History of Present Illness Narrative History of Present Illness (Text): 09/21/17 18:47 A 22 year old female, with no significant past medical history, presents to the emergency department complaining of abdominal pain for 2 weeks. Patient reports she was here in the ER for similar complaint several days ago. She states pain has not changed since last visit. Notes also experiencing associated nausea. Patient denies any other complaints. No PMD Past Medical History - Provider Review Nursing Documentation Reviewed: Yes - Infectious Disease Hx of Infectious Diseases: None - Cardiac Hx Cardiac Disorders: No - Pulmonary Hx Respiratory Disorders: Yes Hx Asthma: Yes - Neurological Hx Neurological Disorder: No - HEENT Hx HEENT Disorder: No - Renal Hx Renal Disorder: No - Endocrine/Metabolic Hx Endocrine Disorders: No - Hematological/Oncological Hx Blood Disorders: No - Integumentary Hx Dermatological Disorder: No - Musculoskeletal/Rheumatological Hx Musculoskeletal Disorders: No - Gastrointestinal Hx Gastrointestinal Disorders: No - Genitourinary/Gynecological Hx Genitourinary Disorders: No - Psychiatric Hx Psychophysiologic Disorder: No Hx Substance Use: No - Surgical History Hx Appendectomy: Yes Other/Comment: removal of feeding - Anesthesia Hx Anesthesia: Yes Hx Anesthesia Reactions: No Hx Malignant Hyperthermia: No Family/Social History - Physician Review Nursing Documentation Reviewed: Yes Family/Social History: No Known Family HX Smoking Status: Never Smoked Hx Alcohol Use: No Hx Substance Use: No Allergies/Home Meds Allergies/Adverse Reactions: Allergies chocolate flavor Allergy (Verified 09/12/17 09:28) ANAPHYLAXIS Home Medications: Home Meds Medication Instructions Recorded Confirmed No Known Home Med 09/21/17 09/21/17 Review of Systems - Physician Review All systems were reviewed & negative as marked: Yes - Review of Systems Constitutional: absent: Fevers, Night Sweats Gastrointestinal: Abdominal Pain, Nausea. absent: Diarrhea, Vomiting Physical Exam Vital Signs Reviewed: Yes Vital Signs Temp Pulse Resp BP Pulse Ox 09/21/17 18:14 97.9 F 81 18 110/70 99 Temperature: Afebrile Blood Pressure: Normal Pulse: Regular Respiratory Rate: Normal Appearance: Positive for: Well-Appearing Pain Distress: None Mental Status: Positive for: Alert and Oriented X 3 - Systems Exam Head: Present: Atraumatic, Normocephalic Pupils: Present: PERRL Extroacular Muscles: Present: EOMI Conjunctiva: Present: Normal Mouth: Present: Moist Mucous Membranes Neck: Present: Normal Range of Motion Respiratory/Chest: Present: Clear to Auscultation, Good Air Exchange. No: Respiratory Distress, Accessory Muscle Use Cardiovascular: Present: Regular Rate and Rhythm, Normal S1, S2. No: Murmurs Abdomen: Present: Normal Bowel Sounds. No: Tenderness, Distention, Peritoneal Signs Back: Present: Normal Inspection Upper Extremity: Present: Normal Inspection. No: Cyanosis, Edema Lower Extremity: Present: Normal Inspection. No: Edema Neurological: Present: GCS=15, CN II-XII Intact, Speech Normal Skin: Present: Warm, Dry, Normal Color. No: Rashes Psychiatric: Present: Alert, Oriented x 3, Normal Insight, Normal Concentration Medical Decision Making ED Course and Treatment: 09/21/17 18:48 Impression: 22 year old female with abdominal pain and nausea. Physical exam is unremarkable. Plan: -- Transvaginal Ultrasound -- Labs -- Urinalysis -- Reassess and disposition Prior Visits: Notes and results from previous visits were reviewed. Patient was last seen in the emergency department on 09/12/2017 for abdominal pain with vaginal spotting. Patient was d/c home. Progress Notes: 09/21/2017 19:58 Transvaginal Ultrasound IMPRESSION: Intrauterine , of uncertain viability. Recommend followup. Dictator: Cristopher Rahman MD 09/21/17 21:08 Ultrasound shows patient does not have a viable and will have likely miscarriage. Results to be discussed with patient. - Lab Interpretations Lab Results: 09/21/17 19:36 09/21/17 19:36 Lab Results 09/21/17 19:36: Beta HCG, Quant 7655.00 H 09/21/17 19:36: Sodium 136, Potassium 4.4, Chloride 104, Carbon Dioxide 24, Anion Gap 12, BUN 10, Creatinine 0.7, Est GFR ( Amer) > 60, Est GFR (Non- Af Amer) > 60, Random Glucose 95, Calcium 9.4, Total Bilirubin 0.4, AST 25, ALT 24, Alkaline Phosphatase 33 L, Total Protein 7.6, Albumin 4.1, Globulin 3.5, Albumin/Globulin Ratio 1.2 09/21/17 19:36: WBC 4.3 L, RBC 4.40, Hgb 10.8 L, Hct 33.4 L, MCV 75.9 L, MCH 24.5 L, MCHC 32.3, RDW 14.2, Plt Count 273, MPV 9.1, Gran % 48.0 L, Lymph % ( Auto) 40.7 H, [place] % (Auto) 8.8 H, Eos % (Auto) 1.6, Baso % (Auto) 0.9, Gran # 2.06, Lymph # 1.8, [place] # 0.4, Eos # 0.1, Baso # 0.04 09/21/17 18:56: Urine Color Yellow, Urine Appearance Clear, Urine pH 6.5, Ur Specific [place] 1.025, Urine Protein Negative, Urine Glucose (UA) Negative, Urine Ketones Negative, Urine Blood Negative, Urine Nitrate Negative, Urine Bilirubin Negative, Urine Urobilinogen 1.0 H, Ur Leukocyte Esterase Negative - RAD Interpretation Radiology Orders: 09/21/17 18:51 OB TRANSVAGINAL [US] Stat - Scribe Statement The provider has reviewed the documentation as recorded by the Angélicaibmaricel Linda Provider Scribe Attestation: All medical record entries made by the Scribe were at my direction and personally dictated by me. I have reviewed the chart and agree that the record accurately reflects my personal performance of the history, physical exam, medical decision making, and the department course for this patient. I have also personally directed, reviewed, and agree with the discharge instructions and disposition. Disposition/Present on Arrival - Present on Arrival Any Indicators Present on Arrival: No History of DVT/PE: No History of Uncontrolled Diabetes: No Urinary Catheter: No History of Decub. Ulcer: No History Surgical Site Infection Following: None - Disposition Have Diagnosis and Disposition been Completed?: Yes Diagnosis: Intrauterine Disposition: HOME/ ROUTINE Disposition Time: 21:08 Patient Plan: Discharge Discharge Instructions (ExitCare): (ED) Additional Instructions: Kanika- I am so sorry that you are going through all this. Please take your labs and your ultrasound report with you to your OB doctor. It does not look at this moment that this will go to term. You need to have repeat BHCG on Sunday at your doctors office. The ED has nothing further to offer you as far as care. You have to see your OB on Sunday. Best- Dr. Cesar Rios Forms: [employer] ([place])
[2017-09-21 19:06] LABS: PH,URINE 6.5 (4.7-8.0); URINE BILIRUBIN NEGATIVE (NEGATIVE); URINE BLOOD NEGATIVE (NEGATIVE); URINE GLUCOSE (UA) NEGATIVE (NEGATIVE); URINE LEUKOCYTE ESTERASE NEGATIVE Leu/uL (NEGATIVE); URINE NITRATE NEGATIVE (NEGATIVE); URINE PROTEIN NEGATIVE mg/dL (<30 mg/dL)
[2017-09-21 19:07] LABS: URINE APPEARANCE CLEAR (CLEAR); URINE COLOR YELLOW (YELLOW)
[2017-09-21 19:46] LABS: BASO # 0.04 K/mm3 (0.0-2.0); BASO % 0.9 % (0.0-3.0); EOS # 0.1 (0.0-0.7); EOS % 1.6 % (1.5-5.0); GRAN # 2.06 (1.4-6.5); HEMOGLOBIN 10.8 g/dL (12.0-16.0); LYMPH # 1.8 (1.2-3.4); LYMPH % 40.7 % (22.0-35.0); MEAN CELL VOLUME 75.9 fl (80.0-105.0); MEAN CORPUSCULAR HEMOGLOBIN 24.5 pg (25.0-35.0); MEAN CORPUSCULAR HGB CONC 32.3 g/dl (31.0-37.0); MEAN PLATELET VOLUME 9.1 fl (7.0-11.0); MONO # 0.4 (0.1-0.6); MONO % 8.8 % (1.0-6.0); RBC 4.4 10^6/uL (3.5-6.1); RED CELL DISTRIBUTION WIDTH 14.2 % (11.5-14.5); WHITE BLOOD COUNT 4.3 10^3/ul (4.5-11.0)
--- NOTE | 2017-09-21 19:58 | US ---
EXAM: US First Trimester, Transabdominal CLINICAL HISTORY: 22 years old, female; Pain; complicated by abdominal or pelvic pain; Generalized abdominal pain; First trimester; Gestational age or lmp: Early pregency; ; Additional info: Early , abdominal pain, fetus not seen ye TECHNIQUE: Real-time transabdominal obstetrical ultrasound of the maternal pelvis and a first trimester with image documentation. COMPARISON: US - TRANSVAGINAL 2017-09-12 10:16 FINDINGS: Gestation: Gestational sac. Yolk sac. No pole. Mean sac diameter of 0.75 cm, out of range. Uterus/cervix: No subchorionic hemorrhage. No cervical dilatation or effacement. Ovaries: Normal ovaries. No adnexal masses. Free fluid: No significant free fluid. IMPRESSION: 1. Intrauterine , of uncertain viability. Recommend followup. EXAM: US , Transvaginal CLINICAL HISTORY: 22 years old, female; Pain; complicated by abdominal or pelvic pain; Generalized abdominal pain; First trimester; Gestational age or lmp: Early pregency; ; Additional info: Early , abdominal pain, fetus not seen ye TECHNIQUE: Real-time transvaginal obstetrical ultrasound of the maternal pelvis and a first trimester with image documentation. Transvaginal imaging was used for better evaluation of the fetus and adnexa. COMPARISON: US - TRANSVAGINAL 2017-09-12 10:16 FINDINGS: Gestation: Gestational sac. Yolk sac. No pole. Mean sac diameter of 0.75 cm, out of range. Uterus/cervix: No subchorionic hemorrhage. No cervical dilatation or effacement. Ovaries: Normal ovaries. No adnexal masses. Free fluid: No significant free fluid.
[2017-09-21 20:16] LABS: ALB/GLOB RATIO 1.2 (1.1-1.8); ALBUMIN 4.1 g/dL (3.0-4.8); ALT/SGPT 24 U/L (7-56); AST/SGOT 25 U/L (14-36); BLOOD UREA NITROGEN 10 mg/dL (7-21); CALCIUM 9.4 mg/dL (8.4-10.5); GFR AFRICAN-AMERICAN > 60; GFR NON-AFRICAN AMERICAN > 60
[2017-09-21 21:39] VITALS: BP 115/82; PULSE 85; RESP 17; TEMP 98; O2SAT 98
== END 2017-09-21 21:39 | disposition home or self-care (01) ==
LOC: ED 18:10
DX: O26.891 Other specified pregnancy related conditions, first trimester (principal); Z3A.00 Weeks of gestation of pregnancy not specified

== ENCOUNTER 2017-09-25 10:36 | Emergency (ER) | payer OTHER ==
[2017-09-25 10:36] VITALS: BMI 24.7
[2017-09-25 11:20] VITALS: TEMP 98.8
--- NOTE | 2017-09-25 11:31 | ED PDOC ---
Arrival/HPI - General Chief Complaint: Abdominal Pain Time Seen by Provider: 09/25/17 10:59 Historian: Patient - History of Present Illness Narrative History of Present Illness (Text): 09/25/17 11:31 A 22 year old female, unknown weeks , last reported to the emergency department four days ago and was told to come to the emergency department after 48 hours for follow up. Patient reported she had a positive urine , and US transvaginal showed intrauterine , of uncertain viability. Denies any vaginal bleeding. Notes she has an OBGYN, but hasn't made an appointment to follow up yet. Patient denies any other complaints at this time. Symptom Onset: Sudden Symptom Course: Unchanged Activities at Onset: Rest Context: Home Past Medical History - Provider Review Nursing Documentation Reviewed: Yes - Infectious Disease Hx of Infectious Diseases: None - Reproductive Menopause: No - Cardiac Hx Cardiac Disorders: No - Pulmonary Hx Respiratory Disorders: Yes Hx Asthma: Yes - Neurological Hx Neurological Disorder: No - HEENT Hx HEENT Disorder: No - Renal Hx Renal Disorder: No - Endocrine/Metabolic Hx Endocrine Disorders: No - Hematological/Oncological Hx Blood Disorders: No - Integumentary Hx Dermatological Disorder: No - Musculoskeletal/Rheumatological Hx Musculoskeletal Disorders: No - Gastrointestinal Hx Gastrointestinal Disorders: No - Genitourinary/Gynecological Hx Genitourinary Disorders: No - Psychiatric Hx Psychophysiologic Disorder: No Hx Substance Use: No - Surgical History Hx Appendectomy: Yes Other/Comment: removal of feeding - Anesthesia Hx Anesthesia: Yes Hx Anesthesia Reactions: No Hx Malignant Hyperthermia: No Family/Social History - Physician Review Nursing Documentation Reviewed: Yes Family/Social History: No Known Family HX Smoking Status: Never Smoked Hx Alcohol Use: No Hx Substance Use: No Allergies/Home Meds Allergies/Adverse Reactions: Allergies chocolate flavor Allergy (Verified 09/25/17 11:03) ANAPHYLAXIS Home Medications: Home Meds Medication Instructions Recorded Confirmed No Known Home Med 09/21/17 09/25/17 Review of Systems - Physician Review All systems were reviewed & negative as marked: Yes - Review of Systems Constitutional: absent: Fevers Genitourinary Female: absent: Vaginal Bleeding Physical Exam - Physical Exam Narrative Physical Exam (Text): 09/25/17 11:29 Constitutional: No acute distress. Head: Normocephalic. Atraumatic. Eyes: PERRL. Cardiovascular: Regular rate. Respiratory: No accesory muscle use. GI: Soft. Nontender. Nondistended. Musculoskeletal: No swelling of extremities. Skin: No rash. Neurologic: Alert, no focal deficits Vital Signs Reviewed: Yes Vital Signs Temp Pulse Resp BP Pulse Ox 09/25/17 15:54 19 98 09/25/17 14:32 75 18 118/71 100 09/25/17 13:11 78 18 116/75 100 09/25/17 11:19 98.8 F 74 18 103/57 L 100 Temperature: Afebrile Blood Pressure: Hypotensive Pulse: Regular Respiratory Rate: Normal Appearance: Positive for: Well-Appearing, Non-Toxic, Comfortable Pain Distress: None Mental Status: Positive for: Alert and Oriented X 3 Medical Decision Making ED Course and Treatment: 09/25/17 11:28 Impression: A 22 year old female, with intrauterine , of uncertain viability, presents to the emergency department for follow up labs. Plan: -- labs -- Reassess and disposition Prior Visits: Notes and results from previous visits were reviewed. Patient was last seen in the emergency department on 09/21/17 for evaluation of abdominal pain. 09/21/17 19:58 US , Transvaginal Dictated By: Cristopher Rahman MD FINDINGS: Gestation: Gestational sac. Yolk sac. No pole. Mean sac diameter of 0.75 cm, out of range. Uterus/cervix: No subchorionic hemorrhage. No cervical dilatation or effacement. Ovaries: Normal ovaries. No adnexal masses. Free fluid: No significant free fluid. IMPRESSION: 1. Intrauterine , of uncertain viability. Recommend followup. Progress Notes: Beta increased. Will send for US. US shows IUP, HR, small subchorionic hemorrhage, A+ blood type on last visit. Patient states she will f/u with her private OBGYN. - Lab Interpretations Lab Results: Lab Results 09/25/17 11:20: Beta HCG, Quant [id number] H I have reviewed the lab results: Yes - RAD Interpretation Radiology Orders: 09/25/17 13:05 OB TRANSVAGINAL [US] Stat - Scribe Statement The provider has reviewed the documentation as recorded by the Scribe Jovanny Garcia Provider Scribe Attestation: All medical record entries made by the Scribe were at my direction and personally dictated by me. I have reviewed the chart and agree that the record accurately reflects my personal performance of the history, physical exam, medical decision making, and the department course for this patient. I have also personally directed, reviewed, and agree with the discharge instructions and disposition. Disposition/Present on Arrival - Present on Arrival Any Indicators Present on Arrival: No History of DVT/PE: No History of Uncontrolled Diabetes: No Urinary Catheter: No History of Decub. Ulcer: No History Surgical Site Infection Following: None - Disposition Have Diagnosis and Disposition been Completed?: Yes Diagnosis: Subchorionic hemorrhage Disposition: HOME/ ROUTINE Disposition Time: 15:47 Patient Plan: Discharge Condition: STABLE Discharge Instructions (ExitCare): Subchorionic Hemorrhage (ED) Forms: [employer] ([employer])
[2017-09-25 14:33] VITALS: BP 118/71; PULSE 75
--- NOTE | 2017-09-25 15:45 | US ---
PROCEDURE: OB Pelvic Ultrasound HISTORY: increasing beta, abd pain, assess cervix COMPARISON: 09/21/2017 FINDINGS: UTERUS: Single Live intrauterine gestation. CRL 5 mm equal to 6 weeks 1 day gestational age Gestational sac diameter 14 mm equal to 5 weeks 4 days gestational age age (Ultrasound estimated): 5 weeks 6 days Date of delivery (Ultrasound estimated) : 05/22/2018 Heart rate: 104 bpm. Karina-gestational hemorrhage: Small subchorionic hemorrhage identified, measuring approximately 0.5 x 0.8 x 1.5 cm. Uterus measures 10.4 x 5.6 x 6.8 cm. No mass CERVIX: Measures 3.2 cm and is closed. RIGHT OVARY: Measures 3.6 x 4.8 x 1.6 cm. No mass. Normal flow. LEFT OVARY: Measures 2.9 x 1.4 x 2.3 cm. No mass. Normal flow. FREE FLUID: Trace OTHER FINDINGS: None. IMPRESSION: Single live intrauterine gestation of approximately 5 weeks 6 days gestational age. Small subchorionic hemorrhage. DAVID by ultrasound 05/22/2018. heart rate 104 beats per minute. Cervix closed. Unremarkable ovaries. Trace fluid in cul-de-sac.
[2017-09-25 15:55] VITALS: RESP 19; O2SAT 98
== END 2017-09-25 15:55 | disposition home or self-care (01) ==
LOC: ED 10:36
DX: O20.8 Other hemorrhage in early pregnancy (principal); Z3A.01 Less than 8 weeks gestation of pregnancy